=== PATIENT | female | born 1950 | race African-American/Black ===

== ENCOUNTER 2019-03-22 18:24 | Inpatient (IN) | payer MEDICAID ==
[~2019-03-22] VITALS: Ht 162.6 cm; Wt 101.6 kg
[2019-03-22] MEDS ORDERED: SODIUM CHLORIDE 0.9% 1,000 ML IV ONE ×2 (18:34→22:38)
[2019-03-22] MEDS ORDERED: VANCOMYCIN 1 G PREMIX 200 ML IV ONE (18:45)
[2019-03-22] MEDS: LEVOFLOXACIN 750MG PREMIX 150 ML IV ONE ×2 (19:03→22:41)
[2019-03-22 21:00] LABS: BG BASE EXCESS 1.5 mmol/L (-2.0-2.0); BG CARBOXYHEMOGLOBIN 0.8 % (0.5-1.5); BG DEOXYHEMOGLOBIN 3.3 % (0.0-5.0); BG FRACTION INSPIRED OXYGEN 1000; BG HCO3 ACT 31.2 mmol/L (22.0-26.0); BG METHEMOGLOBIN 0.3 % (0.0-1.5); BG OXYGEN SATURATION 96.7 % (92.0-98.5); BG OXYHEMOGLOBIN 95.6 % (94.0-97.0); BG PCO2 83.7 mmHg (35.0-45.0); BG PH 7.189 (7.350-7.450); BG PO2 111.4 mmHg (75.0-100.0); BG SAMPLE SITE RIGHT RADIAL; BG VENT MODE MASK - NRB
[2019-03-22] MEDS ORDERED: SODIUM CHLORIDE 0.9% 10ML VIAL ONE (21:15)
[2019-03-22] MEDS ORDERED: VECURONIUM BROMIDE 10 MG/VIAL IV ONE (21:15)
[2019-03-22] MEDS ORDERED: PROPOFOL 10MG/ML 100ML 100 ML IV ONE (21:15)
[2019-03-22] MEDS ORDERED: ETOMIDATE 2MG/ML 10ML VIAL IV ONE ×2 (21:15→22:00)
[2019-03-22 21:43] LABS: CLARITY URINE CLOUDY (CLEAR); COLOR URINE DARK YELLOW (YELLOW); KETONES URINE NEGATIVE (NEGATIVE); LEUKOCYTE ESTERASE URINE 2+ (NEGATIVE); NITRITE URINE NEGATIVE (NEGATIVE); OCCULT BLOOD URINE TRACE (NEGATIVE); PROTEIN URINE 2+ (NEGATIVE); SPECIFIC GRAVITY URINE 1.019 (1.005-1.030)
[2019-03-22 22:04] LABS: BG BASE EXCESS 5.3 mmol/L (-2.0-2.0); BG DEOXYHEMOGLOBIN 0.4 % (0.0-5.0); BG FRACTION INSPIRED OXYGEN 60; BG HCO3 ACT 29.5 mmol/L (22.0-26.0); BG METHEMOGLOBIN 0.2 % (0.0-1.5); BG OXYGEN SATURATION 99.6 % (92.0-98.5); BG OXYHEMOGLOBIN 98.4 % (94.0-97.0); BG PCO2 41.8 mmHg (35.0-45.0); BG PH 7.467 (7.350-7.450); BG PO2 194.8 mmHg (75.0-100.0); BG SAMPLE SITE LEFT BRACHIAL; BG TIDAL VOLUME(mL) 600 mL; BG TOTAL HEMOGLOBIN 10.5 g/dL (12.0-18.0); BG VENT MODE VENT - A/C; BG VENT RATE 14 set
[2019-03-22] MEDS ORDERED: NOREPINEPHRINE 4 MG in DEXT 5% WATER 246 ML IV ONE (22:45)
[2019-03-22] MEDS ORDERED: NOREPINEPHRINE 4MG/250ML PMX 250 ML IV ONE ×3 (22:45→23:15)
[2019-03-22 22:51] LABS: HEMOGLOBIN. 9.5 g/dL (12.0-16.0); MEAN CORPUSCULAR HEMOGLOBIN 24.3 pg (28.0-32.0); MEAN CORPUSCULAR VOLUME 74.2 fL (81.0-99.0); MEAN PLATELET VOLUME 7.1 fl (7.4-10.4); PLATELET 238 x1000/uL (130-400); RED CELL DISTRIBUTION WIDTH 21.1 % (11.6-14.6)
[2019-03-22 22:54] LABS: CHLORIDE 78 mEq/L (98-107)
[2019-03-22 22:56] LABS: INR 1.6; PROTHROMBIN TIME 16.4 sec (9.6-11.0)
[2019-03-22 23:13] LABS: NUCLEATED RED BLOOD CELLS 1 /100 WBC; PLATELET ESTIMATE NORMAL
[2019-03-22] MEDS ORDERED: GUAIFENESIN 200MG/10ML SUGAR FREE UDC PO PRN (23:15)
[2019-03-22] MEDS ORDERED: LEVOFLOXACIN 500MG PREMIX 100 ML IV SCH (23:15)
[2019-03-22] MEDS ORDERED: HYDRALAZINE 20MG/ML VIAL IV PRN (23:15)
[2019-03-22] MEDS ORDERED: MAGNESIUM/ALUMINUM HYDROXIDE/SIMETHICONE 30ML UDC PO PRN (23:15)
[2019-03-22] MEDS ORDERED: LORAZEPAM 2MG/ML CPJ IV PRN (23:15)
[2019-03-22] MEDS ORDERED: IPRATROPIUM/ALBUTEROL 0.5-3(2.5)MG/3ML NEB INH PRN ×2 (23:15)
[2019-03-22] MEDS ORDERED: ONDANSETRON HCL 4MG/2ML INJ IV PRN (23:15)
[2019-03-22] MEDS ORDERED: HYDROMORPHONE HCL/PF 2MG/ML CPJ IV PRN (23:15)
[2019-03-22] MEDS ORDERED: DIPHENHYDRAMINE 50MG/ML VIAL IV PRN (23:15)
[2019-03-22] MEDS ORDERED: DEXTROSE 50% WATER 50ML SYRINGE IV PRN (23:15)
[2019-03-22] MEDS ORDERED: CLONIDINE 0.1MG TABLET PO PRN (23:15)
[2019-03-22] MEDS ORDERED: HYDROCODONE/ACETAMINOPHEN 10/325MG TABLET PO PRN (23:15)
[2019-03-22] MEDS ORDERED: VANCOMYCIN 1 G PREMIX 200 ML IV SCH (23:15)
[2019-03-22] MEDS ORDERED: NA PHOS,M-B/NA PHOS,DI-BA ENEMA 118ML PR PRN (23:15)
[2019-03-22 23:29] VITALS: BP 86/47
[2019-03-22 23:32] VITALS: BP 111/79
[2019-03-22] MEDS ORDERED: NOREPINEPHRINE 4 MG in DEXTROSE 5% WATER 250 ML IV PRN (23:45)
[2019-03-22 23:47] VITALS: BP 118/88
[2019-03-23] VITALS (53 sets, daily range): BP systolic 99–185; BP diastolic 46–153
[2019-03-23] MEDS ORDERED: PROPOFOL 10MG/ML 100ML 100 ML IV PRN
[2019-03-23 05:10] LABS: HEMOGLOBIN. 9.1 g/dL (12.0-16.0); MEAN CORPUSCULAR HEMOGLOBIN 23.9 pg (28.0-32.0); MEAN CORPUSCULAR VOLUME 73.5 fL (81.0-99.0); MEAN PLATELET VOLUME 8.3 fl (7.4-10.4); PLATELET 237 x1000/uL (130-400); RED BLOOD CELL COUNT 3.81 mill/uL (4.2-5.4); RED CELL DISTRIBUTION WIDTH 21.5 % (11.6-14.6)
[2019-03-23] MEDS: SODIUM CHLORIDE 0.9% INJ 3ML FLUSH IVF SCH ×3 (05:11→19:24)
[2019-03-23 05:12] LABS: CHLORIDE 79 mEq/L (98-107)
[2019-03-23 05:32] LABS: LDL CHOLESTEROL 63 mg/dL (5-100)
[2019-03-23 05:34] LABS: CREATINE KINASE 64 IU/L (26-192); CREATINE KINASE MB FRACTION 3.1 ng/mL (0.5-3.6); HDL CHOLESTEROL 91 mg/dL (40-59); T4 FREE 1.53 ng/dL (0.76-1.46)
[2019-03-23] MEDS: VANCOMYCIN 1 G PREMIX 200 ML IV SCH (06:43)
[2019-03-23] MEDS ORDERED: INSULIN LISPRO 100 UNITS/ML SUBCUT SCH (08:20)
[2019-03-23 08:51] LABS: NUCLEATED RED BLOOD CELLS 2 /100 WBC; PLATELET ESTIMATE NORMAL
[2019-03-23] MEDS ORDERED: BLOOD SUGAR DIAGNOSTIC STRIP TEST SCH (09:00)
[2019-03-23 09:07] LABS: BG BASE EXCESS 6.2 mmol/L (-2.0-2.0); BG CARBOXYHEMOGLOBIN 1.2 % (0.5-1.5); BG DEOXYHEMOGLOBIN 3.8 % (0.0-5.0); BG FRACTION INSPIRED OXYGEN 40; BG HCO3 ACT 29.4 mmol/L (22.0-26.0); BG METHEMOGLOBIN 0.3 % (0.0-1.5); BG OXYGEN SATURATION 96.1 % (92.0-98.5); BG OXYHEMOGLOBIN 94.7 % (94.0-97.0); BG PCO2 36.8 mmHg (35.0-45.0); BG PO2 74.9 mmHg (75.0-100.0); BG SAMPLE SITE RIGHT RADIAL; BG TIDAL VOLUME(mL) 600 mL; BG TOTAL HEMOGLOBIN 10.3 g/dL (12.0-18.0); BG VENT MODE VENT - A/C; BG VENT RATE 14 set
[2019-03-23] MEDS: SODIUM CHLORIDE 0.9% 1,000 ML IV SCH ×2 (10:55→20:24)
[2019-03-23] MEDS: IPRATROPIUM/ALBUTEROL 0.5-3(2.5)MG/3ML NEB HHN SCH ×3 (12:32→20:13)
[2019-03-23] MEDS: ENOXAPARIN 30MG/0.3ML SYR SUBCUT SCH ×2 (12:52→20:47)
[2019-03-23] MEDS: FAMOTIDINE 20MG/2ML VIAL IV SCH (12:52)
[2019-03-23] MEDS: AMLODIPINE 2.5MG TABLET NG SCH (13:33)
[2019-03-23] MEDS: PROPOFOL 10MG/ML 100ML 100 ML IV PRN ×2 (13:35→22:04)
[2019-03-23 16:17] LABS: CREATINE KINASE MB FRACTION 2.9 ng/mL (0.5-3.6)
[2019-03-23] MEDS ORDERED: LEVOFLOXACIN 500MG PREMIX 100 ML IV SCH (22:00)
[2019-03-24] VITALS (48 sets, daily range): BP systolic 86–139; BP diastolic 18–113
[2019-03-24] MEDS: IPRATROPIUM/ALBUTEROL 0.5-3(2.5)MG/3ML NEB HHN SCH ×6 (00:17→20:23)
[2019-03-24] MEDS: VANCOMYCIN 1 G PREMIX 200 ML IV SCH (00:45)
[2019-03-24] MEDS: PROPOFOL 10MG/ML 100ML 100 ML IV PRN ×2 (04:41→15:35)
[2019-03-24 05:55] LABS: HEMATOCRIT. 26.6 % (36.0-48.0); HEMOGLOBIN. 8.7 g/dL (12.0-16.0); MEAN CORPUSCULAR HEMOGLOBIN 24.1 pg (28.0-32.0); MEAN CORPUSCULAR VOLUME 73.4 fL (81.0-99.0); MEAN PLATELET VOLUME 6.8 fl (7.4-10.4); PLATELET 197 x1000/uL (130-400); RED BLOOD CELL COUNT 3.62 mill/uL (4.2-5.4); RED CELL DISTRIBUTION WIDTH 22.2 % (11.6-14.6)
[2019-03-24 06:00] LABS: CHLORIDE 85 mEq/L (98-107)
[2019-03-24] MEDS: SODIUM CHLORIDE 0.9% INJ 3ML FLUSH IVF SCH ×3 (06:00→19:26)
[2019-03-24] MEDS: SODIUM CHLORIDE 0.9% 1,000 ML IV SCH ×2 (06:17→15:34)
[2019-03-24 08:10] LABS: BG BASE EXCESS 4.1 mmol/L (-2.0-2.0); BG CARBOXYHEMOGLOBIN 0.4 % (0.5-1.5); BG DEOXYHEMOGLOBIN 8.5 % (0.0-5.0); BG FRACTION INSPIRED OXYGEN 40; BG HCO3 ACT 28.7 mmol/L (22.0-26.0); BG METHEMOGLOBIN 0.3 % (0.0-1.5); BG OXYGEN SATURATION 91.4 % (92.0-98.5); BG OXYHEMOGLOBIN 90.8 % (94.0-97.0); BG PCO2 43.8 mmHg (35.0-45.0); BG PH 7.435 (7.350-7.450); BG SAMPLE SITE RIGHT RADIAL; BG TIDAL VOLUME(mL) 550 mL; BG TOTAL HEMOGLOBIN 9.7 g/dL (12.0-18.0); BG VENT MODE VENT - A/C; BG VENT RATE 12 set
[2019-03-24] MEDS: ENOXAPARIN 30MG/0.3ML SYR SUBCUT SCH ×2 (09:27→21:38)
[2019-03-24] MEDS: FAMOTIDINE 20MG/2ML VIAL IV SCH (09:27)
[2019-03-24] MEDS: AMLODIPINE 2.5MG TABLET NG SCH (09:28)
[2019-03-24 11:29] LABS: PLATELET ESTIMATE NORMAL
[2019-03-24 13:05] LABS: CLARITY URINE CLEAR (CLEAR); COLOR URINE YELLOW (YELLOW); KETONES URINE NEGATIVE (NEGATIVE); LEUKOCYTE ESTERASE URINE 1+ (NEGATIVE); NITRITE URINE NEGATIVE (NEGATIVE); OCCULT BLOOD URINE NEGATIVE (NEGATIVE); PH URINE 6.5 (4.5-8.0); PROTEIN URINE NEGATIVE (NEGATIVE); SPECIFIC GRAVITY URINE 1.002 (1.005-1.030); UROBILINOGEN URINE 0.2 E.U./dL (0.2-1.0)
[2019-03-24] MEDS ORDERED: GENTAMICIN SULFATE 140 MG in SODIUM CHLORIDE 0.9% 100 ML IV NR (17:00)
[2019-03-24] MEDS: VANCOMYCIN 1500MG in DEXTROSE 5% WATER 250ML IV SCH (17:19)
[2019-03-25] VITALS (50 sets, daily range): BP systolic 87–158; BP diastolic 61–112
[2019-03-25] MEDS: IPRATROPIUM/ALBUTEROL 0.5-3(2.5)MG/3ML NEB HHN SCH ×6 (01:00→20:05)
[2019-03-25] MEDS: SODIUM CHLORIDE 0.9% 1,000 ML IV SCH ×2 (01:19→20:32)
[2019-03-25] MEDS: PROPOFOL 10MG/ML 100ML 100 ML IV PRN ×3 (01:20→20:31)
[2019-03-25 05:21] LABS: HEMATOCRIT. 26.1 % (36.0-48.0); HEMOGLOBIN. 8.6 g/dL (12.0-16.0); MEAN CORPUSCULAR HEMOGLOBIN 24.3 pg (28.0-32.0); MEAN CORPUSCULAR VOLUME 73.6 fL (81.0-99.0); MEAN PLATELET VOLUME 7.3 fl (7.4-10.4); PLATELET 206 x1000/uL (130-400); RED BLOOD CELL COUNT 3.55 mill/uL (4.2-5.4); RED CELL DISTRIBUTION WIDTH 22.6 % (11.6-14.6)
[2019-03-25 05:32] LABS: CHLORIDE 92 mEq/L (98-107)
[2019-03-25] MEDS: SODIUM CHLORIDE 0.9% INJ 3ML FLUSH IVF SCH ×2 (06:00→20:30)
[2019-03-25 08:50] LABS: BG BASE EXCESS 4.9 mmol/L (-2.0-2.0); BG CARBOXYHEMOGLOBIN 0.8 % (0.5-1.5); BG DEOXYHEMOGLOBIN 10.1 % (0.0-5.0); BG FRACTION INSPIRED OXYGEN 40; BG HCO3 ACT 29.9 mmol/L (22.0-26.0); BG METHEMOGLOBIN 0.2 % (0.0-1.5); BG OXYGEN SATURATION 89.8 % (92.0-98.5); BG OXYHEMOGLOBIN 88.9 % (94.0-97.0); BG PCO2 46.4 mmHg (35.0-45.0); BG PH 7.427 (7.350-7.450); BG SAMPLE SITE LEFT RADIAL; BG TIDAL VOLUME(mL) 550 mL; BG TOTAL HEMOGLOBIN 9.8 g/dL (12.0-18.0); BG VENT MODE VENT - A/C; BG VENT RATE 12 set
[2019-03-25] MEDS: AMLODIPINE 2.5MG TABLET NG SCH (08:50)
[2019-03-25] MEDS: FAMOTIDINE 20MG/2ML VIAL IV SCH (08:51)
[2019-03-25] MEDS: ENOXAPARIN 30MG/0.3ML SYR SUBCUT SCH ×2 (08:51→20:31)
[2019-03-25 09:39] LABS: PLATELET ESTIMATE NORMAL
[2019-03-25] MEDS: VANCOMYCIN 1500MG in DEXTROSE 5% WATER 250ML IV SCH (13:08)
[2019-03-25] MEDS: GENTAMICIN 100MG PREMIX 50 ML IV SCH (13:10)
[2019-03-25 14:05] LABS: BG BASE EXCESS 3.9 mmol/L (-2.0-2.0); BG DEOXYHEMOGLOBIN 17.7 % (0.0-5.0); BG FRACTION INSPIRED OXYGEN 40; BG HCO3 ACT 29.2 mmol/L (22.0-26.0); BG METHEMOGLOBIN 0.3 % (0.0-1.5); BG OXYGEN SATURATION 82.1 % (92.0-98.5); BG PCO2 47.5 mmHg (35.0-45.0); BG PH 7.406 (7.350-7.450); BG PO2 48.9 mmHg (75.0-100.0); BG SAMPLE SITE RIGHT RADIAL; BG TIDAL VOLUME(mL) 550 mL; BG TOTAL HEMOGLOBIN 10.2 g/dL (12.0-18.0); BG VENT MODE VENT - SIMV; BG VENT RATE 8 set
[2019-03-26] VITALS (49 sets, daily range): BP systolic 87–143; BP diastolic 41–97
[2019-03-26] MEDS: IPRATROPIUM/ALBUTEROL 0.5-3(2.5)MG/3ML NEB HHN SCH ×6 (00:05→20:21)
[2019-03-26] MEDS: SODIUM CHLORIDE 0.9% INJ 3ML FLUSH IVF SCH ×3 (05:19→21:30)
[2019-03-26 05:34] LABS: HEMATOCRIT. 25.9 % (36.0-48.0); HEMOGLOBIN. 8.4 g/dL (12.0-16.0); MEAN CORPUSCULAR VOLUME 74.1 fL (81.0-99.0); MEAN PLATELET VOLUME 7.1 fl (7.4-10.4); PLATELET 216 x1000/uL (130-400); RED CELL DISTRIBUTION WIDTH 22.7 % (11.6-14.6)
[2019-03-26] MEDS: VANCOMYCIN 1500MG in DEXTROSE 5% WATER 250ML IV SCH ×2 (05:36→23:53)
[2019-03-26] MEDS: GENTAMICIN 100MG PREMIX 50 ML IV SCH (05:36)
[2019-03-26 05:44] LABS: CHLORIDE 97 mEq/L (98-107)
[2019-03-26 08:34] LABS: BG DEOXYHEMOGLOBIN 6.5 % (0.0-5.0); BG FRACTION INSPIRED OXYGEN 60; BG METHEMOGLOBIN 0.3 % (0.0-1.5); BG OXYGEN SATURATION 93.4 % (92.0-98.5); BG OXYHEMOGLOBIN 92.2 % (94.0-97.0); BG PCO2 44.8 mmHg (35.0-45.0); BG PH 7.414 (7.350-7.450); BG PO2 70.8 mmHg (75.0-100.0); BG SAMPLE SITE RIGHT RADIAL; BG TIDAL VOLUME(mL) 550 mL; BG TOTAL HEMOGLOBIN 9.6 g/dL (12.0-18.0); BG VENT MODE VENT - A/C; BG VENT RATE 12 set
[2019-03-26] MEDS: FAMOTIDINE 20MG/2ML VIAL IV SCH (09:43)
[2019-03-26] MEDS: PROPOFOL 10MG/ML 100ML 100 ML IV PRN (09:43)
[2019-03-26] MEDS: AMLODIPINE 2.5MG TABLET NG SCH (09:44)
[2019-03-26] MEDS: DOCUSATE SODIUM 100MG CAPSULE PO PRN (09:44)
[2019-03-26] MEDS: ENOXAPARIN 30MG/0.3ML SYR SUBCUT SCH ×2 (09:45→21:29)
[2019-03-26] MEDS ORDERED: PROPOFOL 10MG/ML 100ML 100 ML IV PRN (11:00)
[2019-03-26] MEDS ORDERED: LORAZEPAM 2MG/ML CPJ IV PRN (11:00)
[2019-03-26 11:45] LABS: PLATELET ESTIMATE NORMAL
[2019-03-26] MEDS: SODIUM CHLORIDE 0.9% 1,000 ML IV SCH (13:49)
[2019-03-26] MEDS: GENTAMICIN 80MG PREMIX 100 ML IV SCH (19:00)
[2019-03-27] VITALS (42 sets, daily range): BP systolic 83–163; BP diastolic 62–97
[2019-03-27] MEDS: IPRATROPIUM/ALBUTEROL 0.5-3(2.5)MG/3ML NEB HHN SCH ×6 (00:21→20:35)
[2019-03-27] MEDS: SODIUM CHLORIDE 0.9% INJ 3ML FLUSH IVF SCH ×3 (05:41→22:03)
[2019-03-27 05:45] LABS: HEMATOCRIT. 26.1 % (36.0-48.0); HEMOGLOBIN. 8.1 g/dL (12.0-16.0); MEAN CORPUSCULAR HEMOGLOBIN 23.5 pg (28.0-32.0); MEAN CORPUSCULAR VOLUME 75.5 fL (81.0-99.0); MEAN PLATELET VOLUME 7.3 fl (7.4-10.4); PLATELET 202 x1000/uL (130-400); RED BLOOD CELL COUNT 3.45 mill/uL (4.2-5.4); RED CELL DISTRIBUTION WIDTH 22.8 % (11.6-14.6)
[2019-03-27] MEDS: GENTAMICIN 80MG PREMIX 100 ML IV SCH ×2 (05:47→17:29)
[2019-03-27 05:53] LABS: CHLORIDE 98 mEq/L (98-107)
[2019-03-27 08:00] LABS: BG BASE EXCESS 4.7 mmol/L (-2.0-2.0); BG CARBOXYHEMOGLOBIN 0.9 % (0.5-1.5); BG DEOXYHEMOGLOBIN 12.1 % (0.0-5.0); BG FRACTION INSPIRED OXYGEN 70; BG HCO3 ACT 29.9 mmol/L (22.0-26.0); BG METHEMOGLOBIN 0.3 % (0.0-1.5); BG OXYGEN SATURATION 87.8 % (92.0-98.5); BG OXYHEMOGLOBIN 86.7 % (94.0-97.0); BG PCO2 48.3 mmHg (35.0-45.0); BG PO2 55.8 mmHg (75.0-100.0); BG SAMPLE SITE RIGHT BRACHIAL; BG TIDAL VOLUME(mL) 550 mL; BG TOTAL HEMOGLOBIN 8.9 g/dL (12.0-18.0); BG VENT MODE VENT - A/C; BG VENT RATE 12 set
[2019-03-27] MEDS: AMLODIPINE 2.5MG TABLET NG SCH (09:00)
[2019-03-27] MEDS: FAMOTIDINE 20MG/2ML VIAL IV SCH (09:15)
[2019-03-27] MEDS: ENOXAPARIN 30MG/0.3ML SYR SUBCUT SCH ×2 (09:17→22:02)
[2019-03-27] MEDS: PROPOFOL 10MG/ML 100ML 100 ML IV PRN ×2 (11:50→17:30)
[2019-03-27] MEDS ORDERED: FUROSEMIDE 100MG/10ML VIAL IVP NR (12:00)
[2019-03-27 12:28] LABS: PLATELET ESTIMATE NORMAL
[2019-03-27] MEDS: SODIUM CHLORIDE 0.9% 1,000 ML IV SCH (14:33)
[2019-03-27] MEDS: VANCOMYCIN 1500MG in DEXTROSE 5% WATER 250ML IV SCH (17:30)
[2019-03-28] VITALS (61 sets, daily range): BP systolic 62–123; BP diastolic 36–82
[2019-03-28] MEDS: IPRATROPIUM/ALBUTEROL 0.5-3(2.5)MG/3ML NEB HHN SCH ×6 (00:51→20:04)
[2019-03-28] MEDS: PROPOFOL 10MG/ML 100ML 100 ML IV PRN ×4 (02:08→18:11)
[2019-03-28] MEDS: SODIUM CHLORIDE 0.9% INJ 3ML FLUSH IVF SCH ×3 (05:26→22:46)
[2019-03-28] MEDS: GENTAMICIN 80MG PREMIX 100 ML IV SCH (05:30)
[2019-03-28] MEDS: DOCUSATE SODIUM 100MG CAPSULE PO PRN (05:30)
[2019-03-28 08:15] LABS: BG BASE EXCESS 6.7 mmol/L (-2.0-2.0); BG CARBOXYHEMOGLOBIN 0.2 % (0.5-1.5); BG DEOXYHEMOGLOBIN 5.5 % (0.0-5.0); BG FRACTION INSPIRED OXYGEN 80; BG HCO3 ACT 32.3 mmol/L (22.0-26.0); BG METHEMOGLOBIN 0.4 % (0.0-1.5); BG OXYGEN SATURATION 94.5 % (92.0-98.5); BG OXYHEMOGLOBIN 93.9 % (94.0-97.0); BG PCO2 52.3 mmHg (35.0-45.0); BG PH 7.408 (7.350-7.450); BG SAMPLE SITE RIGHT RADIAL; BG TIDAL VOLUME(mL) 550 mL; BG TOTAL HEMOGLOBIN 9.1 g/dL (12.0-18.0); BG VENT MODE VENT - A/C; BG VENT RATE 12 set
[2019-03-28 08:39] LABS: HEMATOCRIT. 26.6 % (36.0-48.0); HEMOGLOBIN. 8.2 g/dL (12.0-16.0); MEAN CORPUSCULAR HEMOGLOBIN 23.4 pg (28.0-32.0); MEAN CORPUSCULAR VOLUME 75.8 fL (81.0-99.0); PLATELET 193 x1000/uL (130-400); RED BLOOD CELL COUNT 3.51 mill/uL (4.2-5.4); RED CELL DISTRIBUTION WIDTH 22.7 % (11.6-14.6)
[2019-03-28 08:48] LABS: CHLORIDE 98 mEq/L (98-107)
[2019-03-28 08:55] LABS: PHOSPHORUS 3.4 mg/dL (2.5-4.9)
[2019-03-28] MEDS: AMLODIPINE 2.5MG TABLET NG SCH (09:00)
[2019-03-28] MEDS: FAMOTIDINE 20MG/2ML VIAL IV SCH (09:47)
[2019-03-28] MEDS: ENOXAPARIN 30MG/0.3ML SYR SUBCUT SCH ×2 (09:48→21:50)
[2019-03-28] MEDS ORDERED: FUROSEMIDE 40MG/4ML VIAL IVP SCH (12:30)
[2019-03-28 15:34] LABS: PLATELET ESTIMATE NORMAL
[2019-03-28] MEDS ORDERED: GENTAMICIN SULFATE 140 MG in SODIUM CHLORIDE 0.9% 100 ML IV SCH (21:00)
[2019-03-28] MEDS: ACETAMINOPHEN 325MG TABLET PO PRN (21:52)
[2019-03-28] MEDS ORDERED: NOREPINEPHRINE 16 MG in DEXT 5% WATER 234 ML IV PRN (23:00)
[2019-03-28] MEDS: GENTAMICIN SULFATE 140 MG in SODIUM CHLORIDE 0.9% 100 ML IV SCH (23:05)
[2019-03-29] VITALS (85 sets, daily range): BP systolic 72–144; BP diastolic 31–95
[2019-03-29] MEDS: IPRATROPIUM/ALBUTEROL 0.5-3(2.5)MG/3ML NEB HHN SCH ×6 (00:02→20:35)
[2019-03-29 06:00] LABS: HEMOGLOBIN. 8.1 g/dL (12.0-16.0); MEAN CORPUSCULAR HEMOGLOBIN 23.6 pg (28.0-32.0); MEAN PLATELET VOLUME 7.1 fl (7.4-10.4); PLATELET 198 x1000/uL (130-400); RED BLOOD CELL COUNT 3.43 mill/uL (4.2-5.4); RED CELL DISTRIBUTION WIDTH 22.5 % (11.6-14.6)
[2019-03-29] MEDS: SODIUM CHLORIDE 0.9% INJ 3ML FLUSH IVF SCH ×3 (06:00→21:23)
[2019-03-29 06:02] LABS: CHLORIDE 98 mEq/L (98-107)
[2019-03-29] MEDS: FAMOTIDINE 20MG/2ML VIAL IV SCH (08:11)
[2019-03-29] MEDS: ENOXAPARIN 30MG/0.3ML SYR SUBCUT SCH ×2 (08:11→21:23)
[2019-03-29 09:14] LABS: BG BASE EXCESS 4.4 mmol/L (-2.0-2.0); BG CARBOXYHEMOGLOBIN 0.7 % (0.5-1.5); BG DEOXYHEMOGLOBIN 7.6 % (0.0-5.0); BG FRACTION INSPIRED OXYGEN 80; BG HCO3 ACT 29.6 mmol/L (22.0-26.0); BG METHEMOGLOBIN 0.3 % (0.0-1.5); BG OXYGEN SATURATION 92.3 % (92.0-98.5); BG OXYHEMOGLOBIN 91.4 % (94.0-97.0); BG PCO2 47.8 mmHg (35.0-45.0); BG PH 7.409 (7.350-7.450); BG PO2 67.2 mmHg (75.0-100.0); BG SAMPLE SITE LEFT RADIAL; BG TIDAL VOLUME(mL) 550 mL; BG TOTAL HEMOGLOBIN 8.3 g/dL (12.0-18.0); BG VENT MODE VENT - A/C; BG VENT RATE 12 set
[2019-03-29] MEDS ORDERED: LORAZEPAM 2MG/ML CPJ IV PRN (10:30)
[2019-03-29] MEDS: PROPOFOL 10MG/ML 100ML 100 ML IV PRN (11:26)
[2019-03-29 14:13] LABS: PLATELET ESTIMATE NORMAL
[2019-03-29] MEDS ORDERED: IOHEXOL-350 100 ML BOTTLE ONE (18:39)
[2019-03-29] MEDS: ACETAMINOPHEN 325MG TABLET PO PRN (20:13)
[2019-03-29] MEDS: GENTAMICIN SULFATE 140 MG in SODIUM CHLORIDE 0.9% 100 ML IV SCH (21:23)
[2019-03-30] VITALS (89 sets, daily range): BP systolic 72–162; BP diastolic 25–91
[2019-03-30] MEDS: IPRATROPIUM/ALBUTEROL 0.5-3(2.5)MG/3ML NEB HHN SCH ×7 (00:26→23:53)
[2019-03-30] MEDS: PROPOFOL 10MG/ML 100ML 100 ML IV PRN (00:58)
[2019-03-30 05:31] LABS: HEMATOCRIT. 23.8 % (36.0-48.0); HEMOGLOBIN. 7.5 g/dL (12.0-16.0); MEAN CORPUSCULAR HEMOGLOBIN 23.8 pg (28.0-32.0); MEAN CORPUSCULAR VOLUME 75.4 fL (81.0-99.0); MEAN PLATELET VOLUME 8.4 fl (7.4-10.4); PLATELET 196 x1000/uL (130-400); RED BLOOD CELL COUNT 3.16 mill/uL (4.2-5.4); RED CELL DISTRIBUTION WIDTH 22.6 % (11.6-14.6)
[2019-03-30 05:40] LABS: CHLORIDE 97 mEq/L (98-107)
[2019-03-30] MEDS: SODIUM CHLORIDE 0.9% INJ 3ML FLUSH IVF SCH ×3 (06:18→21:24)
[2019-03-30 07:54] LABS: BG BASE EXCESS 3.6 mmol/L (-2.0-2.0); BG DEOXYHEMOGLOBIN 7.1 % (0.0-5.0); BG HCO3 ACT 28.8 mmol/L (22.0-26.0); BG OXYGEN SATURATION 92.8 % (92.0-98.5); BG OXYHEMOGLOBIN 91.9 % (94.0-97.0); BG PCO2 47.3 mmHg (35.0-45.0); BG PH 7.402 (7.350-7.450); BG PO2 70.1 mmHg (75.0-100.0); BG SAMPLE SITE RIGHT RADIAL; BG TIDAL VOLUME(mL) 550 mL; BG TOTAL HEMOGLOBIN 8.2 g/dL (12.0-18.0); BG VENT MODE VENT - A/C; BG VENT RATE 12 set
[2019-03-30] MEDS: ENOXAPARIN 30MG/0.3ML SYR SUBCUT SCH (08:13)
[2019-03-30] MEDS: FAMOTIDINE 20MG/2ML VIAL IV SCH (08:14)
[2019-03-30] MEDS: MIDODRINE HCL 2.5MG TABLET NG SCH ×3 (08:54→16:12)
[2019-03-30] MEDS ORDERED: FUROSEMIDE 40MG/4ML VIAL IVP NR ×2 (09:00→17:00)
[2019-03-30 09:13] LABS: PLATELET ESTIMATE NORMAL
[2019-03-30] MEDS ORDERED: FENTANYL CITRATE/PF 1,000 MCG in SODIUM CHLORIDE 0.9% 80 ML IV PRN (12:00)
[2019-03-30] MEDS ORDERED: MIDAZOLAM HCL 100 MG in DEXT 5% WATER 80 ML IV PRN (12:00)
[2019-03-30] MEDS ORDERED: ALBUMIN HUMAN 25GM/500ML (5%) IV NR (16:00)
[2019-03-30] MEDS: ACETAMINOPHEN 325MG TABLET PO PRN (20:18)
[2019-03-30] MEDS: GENTAMICIN SULFATE 140 MG in SODIUM CHLORIDE 0.9% 100 ML IV SCH (21:24)
[2019-03-31] VITALS (41 sets, daily range): BP systolic 70–131; BP diastolic 21–79
[2019-03-31] MEDS: IPRATROPIUM/ALBUTEROL 0.5-3(2.5)MG/3ML NEB HHN SCH ×3 (04:33→12:35)
[2019-03-31 05:33] LABS: HEMATOCRIT. 25.4 % (36.0-48.0); HEMOGLOBIN. 7.9 g/dL (12.0-16.0); MEAN CORPUSCULAR HEMOGLOBIN 23.7 pg (28.0-32.0); MEAN CORPUSCULAR VOLUME 76.7 fL (81.0-99.0); RED BLOOD CELL COUNT 3.32 mill/uL (4.2-5.4); RED CELL DISTRIBUTION WIDTH 22.9 % (11.6-14.6)
[2019-03-31 05:45] LABS: CHLORIDE 98 mEq/L (98-107)
[2019-03-31 05:54] LABS: GENTAMICIN RANDOM 4.7 ug/mL
[2019-03-31] MEDS: SODIUM CHLORIDE 0.9% INJ 3ML FLUSH IVF SCH ×2 (06:24→14:20)
[2019-03-31 07:20] LABS: MEAN PLATELET VOLUME 8.5 fl (7.4-10.4)
[2019-03-31 07:23] LABS: PLATELET 172 x1000/uL (130-400)
[2019-03-31] MEDS: FAMOTIDINE 20MG/2ML VIAL IV SCH (08:44)
[2019-03-31] MEDS: MIDODRINE HCL 2.5MG TABLET NG SCH (08:44)
[2019-03-31 09:08] LABS: BG BASE EXCESS 3.9 mmol/L (-2.0-2.0); BG CARBOXYHEMOGLOBIN 1.2 % (0.5-1.5); BG DEOXYHEMOGLOBIN 8.1 % (0.0-5.0); BG FRACTION INSPIRED OXYGEN 100; BG HCO3 ACT 30.2 mmol/L (22.0-26.0); BG OXYGEN SATURATION 91.8 % (92.0-98.5); BG OXYHEMOGLOBIN 90.7 % (94.0-97.0); BG PCO2 55.4 mmHg (35.0-45.0); BG PH 7.354 (7.350-7.450); BG PO2 67.5 mmHg (75.0-100.0); BG SAMPLE SITE RIGHT RADIAL; BG TIDAL VOLUME(mL) 550 mL; BG TOTAL HEMOGLOBIN 8.7 g/dL (12.0-18.0); BG VENT MODE VENT - A/C; BG VENT RATE 12 set
[2019-03-31 10:29] LABS: PLATELET ESTIMATE NORMAL
[2019-03-31] MEDS ORDERED: FUROSEMIDE 40MG/4ML VIAL IVP NR (10:30)
[2019-03-31 11:42] LABS: INR 1.3; PARTIAL THROMBOPLASTIN TIME 29.9 sec (23.4-31.0); PROTHROMBIN TIME 13.4 sec (9.6-11.0)
[2019-03-31] MEDS ORDERED: LIDOCAINE HCL 1% 20ML VIAL (Pyxis) INJ ONE (12:36)
[2019-03-31] MEDS ORDERED: SODIUM BICARBONATE 4% (2.4MEQ) 5ML VIAL IV ONE (12:36)
[2019-03-31] MEDS ORDERED: DOPAMINE 800MG PREMIX (DOUBLE) 250 ML IV ONE (14:00)
[2019-03-31] MEDS ORDERED: PHENYLEPHRINE 40 MG in DEXT 5% WATER 246 ML IV PRN (14:00)
[2019-03-31] MEDS ORDERED: DOPAMINE 800MG PREMIX (DOUBLE) 250 ML IV PRN (14:00)
[2019-03-31] MEDS ORDERED: LEVOFLOXACIN 500MG PREMIX 100 ML IV SCH (14:00)
[2019-03-31] MEDS ORDERED: SODIUM BICARBONATE 8.4% 1 MEQ/ML 50ML SYR IV ONE (14:52)
[2019-03-31] MEDS ORDERED: VANCOMYCIN 1500MG in DEXTROSE 5% WATER 250ML IV SCH (15:00)
[2019-03-31] MEDS ORDERED: SODIUM BICARBONATE 8.4% 1 MEQ/ML 50ML SYR IV NR (15:00)
[2019-03-31 15:11] LABS: BG CARBOXYHEMOGLOBIN 0.5 % (0.5-1.5); BG DEOXYHEMOGLOBIN 52.2 % (0.0-5.0); BG FRACTION INSPIRED OXYGEN 100; BG HCO3 ACT 15.7 mmol/L (22.0-26.0); BG METHEMOGLOBIN 0.3 % (0.0-1.5); BG OXYGEN SATURATION 47.4 % (92.0-98.5); BG PCO2 71.7 mmHg (35.0-45.0); BG PH 6.959 (7.350-7.450); BG PO2 42.4 mmHg (75.0-100.0); BG SAMPLE SITE RIGHT BRACHIAL; BG TIDAL VOLUME(mL) 550 mL; BG TOTAL HEMOGLOBIN 9.6 g/dL (12.0-18.0); BG VENT MODE VENT - A/C; BG VENT RATE 16 set
[2019-03-31] MEDS ORDERED: GENTAMICIN 100MG PREMIX 100 ML IV SCH (21:00)
== END 2019-03-31 15:30 | disposition expired | DRG 720 ==
LOC: ER 18:24 → CVICU 22:03 → ENRESERV 22:16
PROVIDERS: ADMIT Internal Medicine; ATTEND Internal Medicine
PROC: 06HY33Z Insertion of Infusion Device into Lower Vein, Percutaneous Approach (ICD-10-PCS; principal; 2019-03-22)
PROC: 5A1955Z Respiratory Ventilation, Greater than 96 Consecutive Hours (ICD-10-PCS; 2019-03-22)
PROC: 0BH17EZ Insertion of Endotracheal Airway into Trachea, Via Natural or Artificial Opening (ICD-10-PCS; 2019-03-22)
PROC: 02HV33Z Insertion of Infusion Device into Superior Vena Cava, Percutaneous Approach (ICD-10-PCS; 2019-03-28)
PROC: B548ZZA Ultrasonography of Superior Vena Cava, Guidance (ICD-10-PCS; 2019-03-28)
PROC: 4B02XSZ Measurement of Cardiac Pacemaker, External Approach (ICD-10-PCS; 2019-03-29)
PROC: 0W993ZZ Drainage of Right Pleural Cavity, Percutaneous Approach (ICD-10-PCS; 2019-03-31)
DX: A41.51 Sepsis due to Escherichia coli [E. coli] (principal); J69.0 Pneumonitis due to inhalation of food and vomit; R65.21 Severe sepsis with septic shock; G93.41 Metabolic encephalopathy; J96.01 Acute respiratory failure with hypoxia; J96.02 Acute respiratory failure with hypercapnia; J91.8 Pleural effusion in other conditions classified elsewhere; Z99.11 Dependence on respirator [ventilator] status; E87.2 Acidosis; I50.33 Acute on chronic diastolic (congestive) heart failure; E46 Unspecified protein-calorie malnutrition; Z66 Do not resuscitate; I27.20 Pulmonary hypertension, unspecified; I48.91 Unspecified atrial fibrillation; E87.1 Hypo-osmolality and hyponatremia; E66.09 Other obesity due to excess calories; I11.0 Hypertensive heart disease with heart failure; N39.0 Urinary tract infection, site not specified; I44.0 Atrioventricular block, first degree; E78.00 Pure hypercholesterolemia, unspecified; E78.5 Hyperlipidemia, unspecified; I44.7 Left bundle-branch block, unspecified; J44.9 Chronic obstructive pulmonary disease, unspecified; Z16.12 Extended spectrum beta lactamase (ESBL) resistance; D64.9 Anemia, unspecified; Z86.73 Personal history of transient ischemic attack (TIA), and cerebral infarction without residual deficits; Z95.0 Presence of cardiac pacemaker; Z88.0 Allergy status to penicillin; Z78.1 Physical restraint status; Z68.38 Body mass index [BMI] 38.0-38.9, adult
CPT/HCPCS: 32555; 36415; 36569; 36600; 71045; 71275; 76937; 80048; 80061; 80170; 80202; 82375; 82533; 82550; 82553; 82805; 83605; 83735; 83880; 83930; 83935; 84100; 84133; 84145; 84300; 84439; 84443; 84478; 84484; 87070; 87077; 87186; 93005; 93306; 94002; 94003; 94640; 95816; 96374; 99285; C1725; J1170; J1265; J1580; J1650; J1940; J1956; J2060; J2250; J2405; J2704; J3010; J3370; J3490; J7030; J7050; J7060; J7620; P9041; Q9967; A4315